=== PATIENT | female | born 1960 ===

== ENCOUNTER 2024-08-06 07:06 | Day surgery (SDC) | payer OTHER ==
[~2024-08-06 07:06] MED LIST: B12 ACTIVE1000 MCG PO; COZAAR100 MG PO; FERRO-TIME325 MG PO; FOSAMAX70 MG PO; HYDROCHLOROTHIA25 MG PO; PANTOPRAZOLE SO40 MG PO; PLAVIX75 MG PO
[2024-08-06] MEDS ORDERED: HEMOSTATIC MATRIX 1 KIT KIT TOP ONE (11:52)
[2024-08-06] MEDS ORDERED: POVIDONE-IODINE 118 ML BOTT TOP ONE (11:53)
[2024-08-06] MEDS ORDERED: BUPIVACAINE HCL/Mpf 0.5% 10ML VIAL ONE (11:53)
[2024-08-06] MEDS ORDERED: LIDOCAINE HCL 1%/EPINEPHRINE 20ML VIAL IJ ONE (11:53)
[2024-08-06] MEDS ORDERED: DIBUCAINE 30 GM TUBE ONE (11:53)
[2024-08-06] MEDS ORDERED: METRONIDAZOLE/SODIUM CHLORIDE 500 MG/100 ML PIGGYBACK IV ONE (11:53)
[2024-08-06] MEDS ORDERED: MORPHINE SULFATE 2 MG/ML CARTRIDGE IV ONE (17:20)
== END 2024-08-06 20:05 | disposition home or self-care (01) ==
LOC: CIR.AMB 07:06
PROVIDERS: ATTEND Colon & Rectal Surgery
DX: K64.2 Third degree hemorrhoids (principal); K64.4 Residual hemorrhoidal skin tags; K92.1 Melena; Z88.6 Allergy status to analgesic agent; Z88.1 Allergy status to other antibiotic agents; I10 Essential (primary) hypertension; J45.909 Unspecified asthma, uncomplicated; E78.5 Hyperlipidemia, unspecified; M19.90 Unspecified osteoarthritis, unspecified site